=== PATIENT | male | born 1955 | race Caucasian/White ===

== ENCOUNTER 2016-07-05 08:41 | Outpatient (RCR) | payer OTHER ==
[~2016-07-05] VITALS: Ht 172.7 cm; Wt 77.1 kg
[~2016-07-05 08:41] MED LIST: HYDROCHLOROTHIA25 MG PO; SIMVASTATIN20 MG PO; ZESTRIL20 MG PO
== END 2016-07-13 | disposition home or self-care (01) ==
LOC: WCC 08:41
DX: L97.314 Non-pressure chronic ulcer of right ankle with necrosis of bone (principal); L97.823 Non-pressure chronic ulcer of other part of left lower leg with necrosis of muscle; I83.013 Varicose veins of right lower extremity with ulcer of ankle; I83.92 Asymptomatic varicose veins of left lower extremity; M86.061 Acute hematogenous osteomyelitis, right tibia and fibula; I10 Essential (primary) hypertension; L97.822 Non-pressure chronic ulcer of other part of left lower leg with fat layer exposed; L03.115 Cellulitis of right lower limb; J45.909 Unspecified asthma, uncomplicated
CPT/HCPCS: 11044

== ENCOUNTER 2016-07-19 08:45 | Outpatient (RCR) | payer OTHER ==
[~2016-07-19] VITALS: Ht 177.8 cm; Wt 70.8 kg
[2016-07-29] MEDS ORDERED: Lidocaine 4% Top Soln 50ml TOPIC ONE (16:45)
== END 2016-08-10 | disposition home or self-care (01) ==
LOC: WCC 08:45
DX: L97.314 Non-pressure chronic ulcer of right ankle with necrosis of bone (principal); I83.013 Varicose veins of right lower extremity with ulcer of ankle; I83.92 Asymptomatic varicose veins of left lower extremity; M86.061 Acute hematogenous osteomyelitis, right tibia and fibula; I10 Essential (primary) hypertension; L97.823 Non-pressure chronic ulcer of other part of left lower leg with necrosis of muscle; L03.115 Cellulitis of right lower limb; L97.822 Non-pressure chronic ulcer of other part of left lower leg with fat layer exposed
CPT/HCPCS: 11044

== ENCOUNTER 2016-08-16 08:45 | Outpatient (RCR) | payer OTHER | END 2016-09-10 | disposition home or self-care (01) | LOC: WCC 08:45 | DX: L97.314 Non-pressure chronic ulcer of right ankle with necrosis of bone (principal); L97.823 Non-pressure chronic ulcer of other part of left lower leg with necrosis of muscle; I83.013 Varicose veins of right lower extremity with ulcer of ankle; I83.92 Asymptomatic varicose veins of left lower extremity; M86.061 Acute hematogenous osteomyelitis, right tibia and fibula; I10 Essential (primary) hypertension; L97.822 Non-pressure chronic ulcer of other part of left lower leg with fat layer exposed; L03.115 Cellulitis of right lower limb; J20.9 Acute bronchitis, unspecified; J45.909 Unspecified asthma, uncomplicated | CPT/HCPCS: 11044 ==

== ENCOUNTER 2016-09-27 08:31 | Outpatient (RCR) | payer OTHER ==
[~2016-09-27] VITALS: Ht 177.8 cm; Wt 70.8 kg
[2016-10-07] MEDS ORDERED: Lidocaine HCl 2% Jelly 5ml Tube TOPIC ONE (11:00)
== END 2016-10-10 | disposition home or self-care (01) ==
LOC: WCC 08:31
DX: L97.314 Non-pressure chronic ulcer of right ankle with necrosis of bone (principal); L97.823 Non-pressure chronic ulcer of other part of left lower leg with necrosis of muscle; I83.013 Varicose veins of right lower extremity with ulcer of ankle; I83.92 Asymptomatic varicose veins of left lower extremity; M86.061 Acute hematogenous osteomyelitis, right tibia and fibula; I10 Essential (primary) hypertension; L97.822 Non-pressure chronic ulcer of other part of left lower leg with fat layer exposed; L03.115 Cellulitis of right lower limb; J20.9 Acute bronchitis, unspecified; I87.2 Venous insufficiency (chronic) (peripheral); J45.909 Unspecified asthma, uncomplicated
CPT/HCPCS: 11044

== ENCOUNTER 2016-10-18 08:43 | Outpatient (RCR) | payer OTHER | END 2016-11-10 | disposition home or self-care (01) | LOC: WCC 08:43 | DX: L97.314 Non-pressure chronic ulcer of right ankle with necrosis of bone (principal); L97.823 Non-pressure chronic ulcer of other part of left lower leg with necrosis of muscle; I83.013 Varicose veins of right lower extremity with ulcer of ankle; I83.92 Asymptomatic varicose veins of left lower extremity; M86.061 Acute hematogenous osteomyelitis, right tibia and fibula; I10 Essential (primary) hypertension; L97.822 Non-pressure chronic ulcer of other part of left lower leg with fat layer exposed; L03.115 Cellulitis of right lower limb; J20.9 Acute bronchitis, unspecified; J45.909 Unspecified asthma, uncomplicated | CPT/HCPCS: 11044 ==

== ENCOUNTER 2016-11-22 08:45 | Outpatient (RCR) | payer OTHER | END 2016-12-10 | disposition home or self-care (01) | LOC: WCC 08:45 | DX: L97.314 Non-pressure chronic ulcer of right ankle with necrosis of bone (principal); L97.823 Non-pressure chronic ulcer of other part of left lower leg with necrosis of muscle; I83.013 Varicose veins of right lower extremity with ulcer of ankle; I83.92 Asymptomatic varicose veins of left lower extremity; M86.061 Acute hematogenous osteomyelitis, right tibia and fibula; I10 Essential (primary) hypertension; L97.822 Non-pressure chronic ulcer of other part of left lower leg with fat layer exposed; L03.115 Cellulitis of right lower limb; J20.9 Acute bronchitis, unspecified; S90.821A Blister (nonthermal), right foot, initial encounter; X58.XXXA Exposure to other specified factors, initial encounter; Y93.9 Activity, unspecified; Y92.9 Unspecified place or not applicable | CPT/HCPCS: 11044 ==

== ENCOUNTER 2016-12-15 10:29 | Outpatient (RCR) | payer OTHER | END 2017-01-10 | disposition home or self-care (01) | LOC: WCC 10:29 | DX: L97.314 Non-pressure chronic ulcer of right ankle with necrosis of bone (principal); L97.823 Non-pressure chronic ulcer of other part of left lower leg with necrosis of muscle; I83.013 Varicose veins of right lower extremity with ulcer of ankle; I83.92 Asymptomatic varicose veins of left lower extremity; M86.061 Acute hematogenous osteomyelitis, right tibia and fibula; I10 Essential (primary) hypertension; L97.822 Non-pressure chronic ulcer of other part of left lower leg with fat layer exposed; L03.115 Cellulitis of right lower limb; J20.9 Acute bronchitis, unspecified; S90.821A Blister (nonthermal), right foot, initial encounter; X58.XXXA Exposure to other specified factors, initial encounter; Y93.9 Activity, unspecified; Y92.9 Unspecified place or not applicable | CPT/HCPCS: 11044 ==

== ENCOUNTER 2017-01-17 08:45 | Outpatient (RCR) | payer OTHER ==
[~2017-01-17] VITALS: Ht 177.8 cm; Wt 70.8 kg
[2017-01-27] MEDS ORDERED: Lidocaine 4% Top Soln 50ml TOPIC ONE (16:00)
== END 2017-02-10 | disposition home or self-care (01) ==
LOC: WCC 08:45
DX: L97.314 Non-pressure chronic ulcer of right ankle with necrosis of bone (principal); I83.013 Varicose veins of right lower extremity with ulcer of ankle; I10 Essential (primary) hypertension
CPT/HCPCS: 11044

== ENCOUNTER 2017-02-21 08:45 | Outpatient (RCR) | payer OTHER ==
[~2017-02-21] VITALS: Ht 177.8 cm; Wt 70.8 kg
[2017-02-25] MEDS ORDERED: Lidocaine HCl 2% Jelly 5ml Tube TOPIC ONE (14:30)
== END 2017-03-12 | disposition home or self-care (01) ==
LOC: WCC 08:45
DX: L97.314 Non-pressure chronic ulcer of right ankle with necrosis of bone (principal); I83.013 Varicose veins of right lower extremity with ulcer of ankle; I10 Essential (primary) hypertension
CPT/HCPCS: 11044

== ENCOUNTER 2017-03-14 08:45 | Outpatient (RCR) | payer OTHER ==
[~2017-03-14] VITALS: Ht 177.8 cm; Wt 70.8 kg
== END 2017-04-12 | disposition home or self-care (01) ==
LOC: WCC 08:45
DX: L97.314 Non-pressure chronic ulcer of right ankle with necrosis of bone (principal); I83.013 Varicose veins of right lower extremity with ulcer of ankle; I10 Essential (primary) hypertension
CPT/HCPCS: 11044

== ENCOUNTER 2017-04-18 08:45 | Outpatient (RCR) | payer OTHER ==
[~2017-04-18] VITALS: Ht 177.8 cm; Wt 70.8 kg
[2017-05-13] MEDS ORDERED: Lidocaine HCl 2% Jelly 5ml Tube TOPIC ONE (10:00)
== END 2017-05-12 | disposition home or self-care (01) ==
LOC: WCC 08:45
DX: L97.314 Non-pressure chronic ulcer of right ankle with necrosis of bone (principal); I83.013 Varicose veins of right lower extremity with ulcer of ankle; Z82.49 Family history of ischemic heart disease and other diseases of the circulatory system; I10 Essential (primary) hypertension
CPT/HCPCS: 11044